=== PATIENT | female | born 1980 | race Caucasian/White ===

== ENCOUNTER → 2016-09-29 | Outpatient (CLI) | payer BC ==
[~2016-09-29] MED LIST: FISHOIL PO; METH0.2T39 PO; PRENTAB26 PO
[2016-09-29 18:45] LABS: URINE APPEARANCE CLEAR (CLEAR); URINE BILIRUBIN NEG (NEG); URINE COLOR YELLOW; URINE EPITHELIAL CELL AUTO 0-5 /lpf (0-5); URINE NITRITE NEG (NEG); UROBILINOGEN NEG (NEG)
[2016-09-29 18:47] LABS: MANUAL MICROSCOPIC REQUIRED? NO; REVIEW REQ? NO
== END | disposition home or self-care (01) ==
LOC: C.LABSPEC 17:51
PROVIDERS: ATTEND Obstetrics & Gynecology
DX: O09.512 Supervision of elderly primigravida, second trimester (principal); Z3A.00 Weeks of gestation of pregnancy not specified

== ENCOUNTER → 2016-09-29 | Outpatient (CLI) | payer BC ==
[2016-09-29 17:33] LABS: HEMATOCRIT 32.2 % (37-47)
[2016-09-29 18:07] LABS: GTGD 50 Grams
== END | disposition home or self-care (01) ==
LOC: C.LAB1850 16:53
PROVIDERS: ATTEND Obstetrics & Gynecology
DX: O09.512 Supervision of elderly primigravida, second trimester (principal); Z3A.00 Weeks of gestation of pregnancy not specified

== ENCOUNTER → 2016-11-20 | Outpatient (CLI) | payer BC | END | disposition home or self-care (01) | LOC: C.LABSPEC 16:23 | PROVIDERS: ATTEND Obstetrics & Gynecology | DX: O09.293 Supervision of pregnancy with other poor reproductive or obstetric history, third trimester (principal); Z3A.00 Weeks of gestation of pregnancy not specified ==

== ENCOUNTER 2016-12-16 03:08 | Inpatient (IN) | payer BC ==
[~2016-12-16] VITALS: Ht 172.7 cm; Wt 105.9 kg
[2016-12-17] MEDS ORDERED: LACTATED RINGER'S 1000ML 1,000 ML IV SCH ×2 (08:13→21:30)
[2016-12-17] MEDS ORDERED: LACTATED RINGER'S 1000ML 1,000 ML IV PRN (08:13)
[2016-12-17] MEDS ORDERED: LACTATED RINGER'S 1000ML 500 ML IV PRN ×3 (08:13→14:59)
[2016-12-17] MEDS ORDERED: NURSING VERBAL MED ORDER ONE (08:30)
[2016-12-17 08:44] LABS: HEMATOCRIT 33.4 % (37-47); MEAN CORPUSCULAR HEMOGLOBIN 29.6 pg (25-34); MEAN CORPUSCULAR HGB CONC 32.9 g/dl (32-36); PLATELET COUNT 233 K/uL (130-400); RED BLOOD COUNT 3.71 M/uL (4.2-5.4); WHITE BLOOD COUNT 8.86 K/uL (4.8-10.8)
[2016-12-17] MEDS ORDERED: PENICILLIN G POTASSIUM IV 6 MU in DEXTROSE 5% 250ML IV SCH (08:45)
[2016-12-17 08:59] VITALS: Ht 172.7 cm; Wt 105.9 kg
[2016-12-17] MEDS ORDERED: OXYTOCIN 30 UNITS/500ML NSS IV PRN ×2 (09:30→21:30)
[2016-12-17] MEDS: PENICILLIN G POTASSIUM IV 3 MU in DEXTROSE 5% 100ML IV PRN ×2 (12:46→17:10)
[2016-12-17] MEDS ORDERED: EpHEDrine SULFATE INJ 50 MG/ML AMP ONE (14:48)
[2016-12-17] MEDS ORDERED: BUPIVACAINE 0.25% 30 ML VIAL ONE (14:48)
[2016-12-17] MEDS ORDERED: FENTANYL 2MCG/ML ROPIV 1.25MG/ML 100ML BAG EPI ONE (14:48)
[2016-12-17] MEDS ORDERED: FENTANYL CITRATE INJ 50 MCG/1 ML 2 ML VIAL ONE (14:49)
[2016-12-17] MEDS ORDERED: NALOXONE HCL INJ 1 MG in SODIUM CHLORIDE 0.9% 1000ML 1,000 ML IV PRN (14:59)
[2016-12-17] MEDS ORDERED: FENTANYL 2MCG/ML ROPIV 1.25MG/ML 100ML BAG EPI PRN (15:00)
[2016-12-17] MEDS ORDERED: NALBUPHINE HCL INJ 10 MG/ML AMP IV PRN (15:00)
[2016-12-17] MEDS ORDERED: EpHEDrine SULFATE INJ 50 MG/ML AMP IV PRN (15:00)
[2016-12-17] MEDS ORDERED: NALOXONE HCL INJ 0.4 MG/1 ML VIAL/CARP IV PRN (15:00)
[2016-12-17] MEDS ORDERED: ONDANSETRON INJ 2 MG/ML 2 ML VIAL IV PRN (15:00)
[2016-12-17] MEDS ORDERED: DiphenhydrAMINE HCL 50 MG/ML VIAL IV PRN (15:00)
[2016-12-17] MEDS ORDERED: ACETAMINOPHEN 325 MG TAB PO PRN (21:30)
[2016-12-17] MEDS ORDERED: BENZOCAINE 20% AER SPR 82.5 GM CAN EXT PRN (21:30)
[2016-12-17] MEDS ORDERED: SUPERCREAM 0.870 % 15GM JAR EXT PRN (21:30)
[2016-12-17] MEDS ORDERED: HYDROCORTISONE ACETATE 25 MG SUPP PR PRN (21:30)
[2016-12-17] MEDS ORDERED: ACETAMINOPHEN/CODEINE 300/30MG TAB PO PRN ×2 (21:30)
[2016-12-17] MEDS ORDERED: LANOLIN OINT EXT PRN ×2 (21:30)
--- NOTE | 2016-12-17 21:37 | Anesthesia Procedure Note ---
Anesthesia Epidural Removal Nt Date & Time Dec 17, 2016 at 21:36 Vital Signs Pain Intensity: 2 Notes Mental Status: alert / awake / arousable, participated in evaluation Nausea / Vomiting: adequately controlled Pain: adequately controlled Airway Patency, RR, SpO2: stable & adequate BP & HR: stable & adequate Hydration State: stable & adequate Neuraxial Anesthesia: was administered Anesthetic Complications: no major complications apparent, pt satisfied with anesthetic care Epidural: removed without complications, with tip intact
--- NOTE | 2016-12-17 23:58 | DELIVERY SUMMARY ---
DATE OF OPERATION: 12/17/2016 VAGINAL DELIVERY NOTE PREOPERATIVE DIAGNOSES: 1. Apple intrauterine at postdates. 2. Induction of labor. 3. Group B strep positive. POSTOPERATIVE DIAGNOSES: Same. PROCEDURE: Spontaneous vaginal delivery and repair of second degree laceration. SURGEON: Jessica Harris MD DRAFTER MARINE: None. ESTIMATED BLOOD LOSS: 400 mL. COMPLICATIONS: None. DISPOSITION: Stable in labor and delivery. DESCRIPTION: Mae Leo is a 36-year-old. She was induced on 12/17/2016 for post dates. She had group B strep positive status, and she was managed with antibiotics during labor. She was induced using Pitocin. She reached complete dilation with an urge to push and I was called to the bedside. The head was already very close to delivery and she was coached to pushing efforts. She shortly thereafter delivered the head of the infant in the occiput anterior position, both shoulders were delivered without any difficulty and the infant was actually crying before its body was slowly delivered from the vagina. The was placed on the maternal abdomen. The cord was doubly clamped and cut by the father of the baby. The placenta delivered spontaneously and was intact with a 3-vessel cord. A second degree perineal laceration was repaired with Vicryl suture in the usual manner. At the completion of the procedure, the fundus was firm and the mother and infant were in stable condition. I attest to the content of the Intraoperative Record and any orders documented therein. Any exceptions are noted below. MTDD
[2016-12-18] VITALS (7 sets, daily range): BP systolic 111–129; BP diastolic 72–83; PULSE 67–81; TEMP 36.3–37.2; O2SAT 98
--- NOTE | 2016-12-18 06:58 | Progress Note ---
Subjective Dec 18, 2016. Subjective conversation w/ patient, physical exam, lab review Ambulation: ambulating normally Voiding: no voiding problems Passing Gas: Yes Diet Tolerance: Regular Diet Lochia: Moderate Feeding Type: Breast Feeding Pain: denies pain Comment: Patient was seen at the bedside. No acute event overnight. Review of Systems Constitutional: No fever Respiratory: No shortness of breath Cardiac: No chest pain Breast: No breast lump Abdomen: No nausea, No pain, No vomiting Female : No dysuria Denies headache Objective Vital Signs Date Time Temp Pulse Resp B/P Pulse Ox O2 Delivery O2 Flow Rate FiO2 12/18/16 04:00 36.9 69 16 111/73 Room Air 12/18/16 00:40 Room Air 12/18/16 00:40 36.6 79 18 114/80 Room Air Physical Exam General Appearance: WELL-APPEARING, WD/WN, NO APPARENT DISTRESS Respiratory/Chest: chest non-tender, lungs clear, normal breath sounds, no respiratory distress Cardiovascular: regular rate, rhythm Abdomen: normal bowel sounds, non tender, soft Fundus: Firm, Relation to Umbilicus (2cm below) Extremities: non-tender, no calf tenderness, + pedal edema (trace of ankle edema R>L) Laboratory Results Last 24 Hours Test 12/17/16 08:32 12/18/16 04:44 White Blood Count 8.86 K/uL Red Blood Count 3.71 M/uL Hemoglobin 11.0 g/dL Hematocrit 33.4 % Mean Corpuscular Volume 90.0 fL Mean Corpuscular Hemoglobin 29.6 pg Mean Corpuscular Hemoglobin Concent 32.9 g/dl RDW Standard Deviation 43.8 fL RDW Coefficient of Variation 13.5 % Platelet Count 233 K/uL Mean Platelet Volume 10.0 fL Medications Current Inpatient Medications Medications (Trade) Dose Ordered Sig/Vitor Route Start Time Stop Time Status Last Admin Dose Admin Lactated Ringer's 1,000 ml @ 125 mls/hr Q8H IV 12/17/16 08:13 12/19/16 08:12 12/17/16 15:08 125 MLS/HR Lactated Ringer's 500 ml @ 999 mls/hr Q31M PRN IV 12/17/16 08:13 01/16/17 08:12 Lactated Ringer's (Lr 1000ml) 1,000 ml @ 125 mls/hr Q8H IV 12/17/16 21:30 01/16/17 21:29 Oxytocin (Pitocin IV) 30 units UD PRN IV 12/17/16 21:30 01/16/17 21:29 Benzocaine (Dermoplast Aero Spr) 1 appln PRN PRN EXT 12/17/16 21:30 01/16/17 21:29 12/18/16 03:51 1 APPLN Cocaine HCl (Supercream 0.870% Cr) BID PRN EXT 12/17/16 21:30 12/31/16 21:29 Hydrocortisone Acetate (Anusol Hc Supp) 25 mg BID PRN AK 12/17/16 21:30 01/16/17 21:29 Lanolin (Lanolin Oint) PRN PRN EXT 12/17/16 21:30 01/16/17 21:29 Prenat Multivit/ Computer Bookkeeper/Iron/Folic Ac ( Vitamin Tab) 1 tab DAILY PO 12/18/16 08:00 01/17/17 07:59 Ibuprofen (Motrin Tab) 600 mg Q4H PRN PO 12/17/16 21:30 01/16/17 21:29 Acetaminophen (Tylenol Tab) 650 mg Q6H PRN PO 12/17/16 21:30 01/16/17 21:29 Acetaminophen/ Codeine Phosphate (Tylenol w/ Codeine #3 Tab) 1 tab Q4H PRN PO 12/17/16 21:30 01/16/17 21:29 Acetaminophen/ Codeine Phosphate (Tylenol w/ Codeine #3 Tab) 2 tab Q4H PRN PO 12/17/16 21:30 01/16/17 21:29 Docusate Sodium (coLACE CAP) 100 mg BID PO 12/18/16 08:00 01/17/17 07:59 Diphtheria/ Pertussis/Tetanus Vacc (Adacel Inj) 0.5 ml ONCE ONCE IM. 12/18/16 09:00 12/18/16 09:01 Assessment and Plan Post- Day#: 1 Continue Routine Care: A/P: This is a 36 y/o female, , s/p normal vaginal delivery. She is ambulating and clinically stable. Plan: - Vitals signs are reviewed and WNL (Tmax 36.9 ) - Last Hgb is 11.0 (this morning H&H pending) - Blood type A+, GBS positive, Rubella Immune - Routine care - Encourage ambulation, monitor and control pain with medication as needed , continue with regular diet as tolerated and monitor lochia - Stool softeners and sitz bath recommended - Encourage breast feeding and educate about breast feeding Resident Physician Supervision Note: I interviewed and examined the patient. Discussed with Dr. Prado and agree with findings and plan as documented in the note. Any exceptions or clarifications are listed here: [None] Documented By: Jessica Harris
[2016-12-18 07:22] LABS: HEMATOCRIT 32.9 % (37-47)
[2016-12-18] MEDS: DOCUSATE SODIUM 100 MG CAP PO SCH (08:33)
[2016-12-18] MEDS: PRENATAL VITAMIN TAB PO SCH (08:33)
[2016-12-18] MEDS ORDERED: DIPHTHERIA/TETANUS/PERTUSSIS 0.5 ML SYR/VIAL IM. ONE (09:00)
[2016-12-19] MEDS: IBUPROFEN 600 MG TAB PO PRN ×3 (03:18→15:00)
--- NOTE | 2016-12-19 06:24 | Discharge Instructions ---
Discharge Instructions Date of Service Dec 19, 2016. Admission Reason for Admission: Induction Discharge Discharge Diagnosis / Problem: S/P normal vaginal delivery Discharge Goals Goal(s): Routine recovery after delivery Medications Continue Dispensed Medications: supercream, dermaplast, tucks, lansinoh Activity Recommendations Activity Limitations: as noted below . Instructions / Follow-Up Instructions / Follow-Up ACTIVITY RECOMMENDATIONS: * Gradual return to full activity over the next 2-3 weeks. * No lifting - nothing heavier than baby over the next 2-3 weeks. * Do not engage in vigorous exercise, sexual activity or sports until cleared by your physician. * Do not drive or operate any motorized equipment until cleared by your physician. * You may shower/bathe daily. MEDICATIONS: For discomfort or pain, you may use Acetaminophen (Tylenol), Ibuprofen (Advil), or Naproxen (Aleve) following the package directions. For constipation you may use Colace following the package directions. BREAST CARE: If you are not breast feeding: * Wear a supportive bra 24 hours a day for one to two weeks. * Avoid stimulating your breasts and nipples as much as possible during the first few weeks after delivery. * When taking a shower, have the warm water hit your back, not breasts. * When your breasts feel full, apply ice packs. Usually three to four times a day helps ease the discomfort. * Take a mild pain medication (Tylenol / Motrin) when you are uncomfortable. If breast feeding: * Use breast milk to lubricate nipples. Lansinoh cream may be used for sore nipples. You do not need to remove cream prior to breast feeding. If using a different brand of cream, check the label for directions regarding removal of cream prior to nursing. * Wear a supportive bra. * If having problems with breasts or breast feeding, call a communication consultant or your health care provider. EPISIOTOMY CARE: After delivery, if you have an episiotomy (stitches), the following steps will ease discomfort and aid healing. * For the first 24 hours after delivery, place ice packs next to your episiotomy to help reduce swelling. * After the first 24 hour-period, sitz baths, either portable or in the tub, are suggested. A shower with a shower arm sprayed over the episiotomy may be comforting. * Rabia care should be done after each voiding and bowel movement. Squirt warm water from a plastic bottle over the perineum (region of the body between the anus and urinary opening) and pat dry. * Use Dermoplast to ease discomfort. Shake container. [place] directly over the episiotomy. Place a Tucks on a clean sanitary pad next to your episiotomy. SPECIAL CARE INSTRUCTIONS: When you are discharged from the hospital, it is important for you to follow the instructions listed below: * During the first week at home, you should be able to care for yourself and your baby. In addition, the usual light household activities are encouraged. * Limit your activities to the way you feel. Do not try to clean the house or move furniture. Be sensible. * If you actively engage in sports and have done so up until the time of your delivery, you may resume these activities as soon as you feel able. This may take up to one month or even longer. Use good judgment. * Continue to take your vitamins for at least six weeks after the of your baby. * Your diet need not be limited unless you were on a special diet before your delivery. Breast-feeding mothers need around 2500 calories per day and at least 64-80 ounces of fluid per day (8 to 10 glasses). * You should eat foods from the four major food groups. Crash diets or fad diets are to be avoided. Eating lean meats, fresh fruits and vegetables, low-fat dairy products, high fiber foods and a regular exercise program, will help you get back to your pre- weight without putting your health at risk. * Constipation is sometimes a problem after delivery. Take a mild laxative as needed. If breast feeding, Milk of Magnesia is acceptable to use. You may use a suppository or Fleets enema if no episiotomy. * A daily shower or tub bath is suggested. Be sure to thoroughly and gently dry the perineum. * A bloody vaginal discharge will usually continue until around four weeks post . A small amount of bleeding may continue for as long as six weeks. Vaginal discharge changes from the bright red bleeding after delivery to pink then brownish and finally yellowish-pink before becoming white and disappearing. * Bleeding may increase with activity. Your first period may come in 4-8 weeks. If you are breast feeding, your period may be delayed even longer. * [place] (sex) can begin whenever both you and your partner feel comfortable and do not have any form of genital infection. It is recommended that you wait at least six weeks for internal and external healing to occur. If you have questions, please talk to your health care practitioner. A condom should be used to prevent infection and . * Foreplay, gentle intercourse and lubrication is very important the first several times to prevent pain. A water-based lubricant such as K-Y jelly or Astroglide may be used. * If you have RH negative blood and your baby is RH positive, you will receive RHOGAM by injection prior to discharge. The nurse will give you a card to keep with you that has the date and place that you received RHOGAM after delivery. * During your care, you had a Rubella screen done to check for the presence of rubella antibodies in your blood. If your test was negative, you will receive a Rubella vaccine prior to discharge. This vaccine may cause a fever, soreness at the injection site and flu-like symptoms. If these symptoms persist, notify your health care practitioner. is not advised for one month after a Rubella vaccine. * Verbalizes understanding of car seat law as reviewed with patient nursing. * Car Seat hand-out given and reviewed with patient by nursing. * Shaken baby information reviewed with patient by nursing. Call you doctor if: * Heavy bleeding (saturating several pads an hour) or passing clots the size of your fist. * A fever >101 degrees F (38.3 degrees C) on two occasions four hours apart and /or chills. * Unusual pain in the pelvic or vaginal areas. * "Baby Blues" lasting longer than two weeks. If you have any questions or concerns, call your health care practitioner at . FOLLOW UP VISIT: * Please call the office at to schedule a 6 week examination. It is important you keep this appointment. It is important for you to make arrangements for either yearly or twice yearly check-ups thereafter. Current Hospital Diet Patient's current hospital diet: Regular OB Diet Discharge Diet Recommended Diet: Regular Diet Pending Studies Studies pending at discharge: no Medical Emergencies . Who to Call and When: Medical Emergencies: If at any time you feel your situation is an emergency, please call [phone] immediately. . Non-Emergent Contact Non-Emergency issues call your: Mechanical Equipment Test Engineer Call Non-Emergent contact if: you have a fever, temperature is above 101 . . "Provider Documentation" section prepared by Adriel Prado. . VTE Core Measure Inpt VTE Proph given/why not?: Treatment not indicated
--- NOTE | 2016-12-19 06:24 | Progress Note ---
Subjective Dec 19, 2016. Subjective conversation w/ patient, physical exam, lab review Ambulation: ambulating normally Voiding: no voiding problems Passing Gas: Yes Diet Tolerance: Regular Diet Lochia: Small Feeding Type: Breast Feeding Pain: controlled Objective Vital Signs Date Time Temp Pulse Resp B/P Pulse Ox O2 Delivery O2 Flow Rate FiO2 12/18/16 23:45 36.9 70 18 123/83 Room Air 12/18/16 23:45 Room Air 12/18/16 20:10 36.5 76 18 117/79 Room Air 12/18/16 15:43 98 Room Air 12/18/16 15:43 37.2 67 18 119/77 98 Room Air 12/18/16 12:45 36.6 77 16 111/72 98 Room Air 12/18/16 08:15 36.3 81 16 129/83 98 Room Air 12/18/16 08:15 98 Room Air Physical Exam General Appearance: WELL-APPEARING, WD/WN, NO APPARENT DISTRESS Respiratory/Chest: lungs clear, normal breath sounds Cardiovascular: regular rate, rhythm Abdomen: normal bowel sounds, non tender, soft Fundus: Firm, Non-Tender, Relation to Umbilicus (at u) Extremities: non-tender, normal inspection, no pedal edema Laboratory Results Last 24 Hours Test 12/18/16 06:48 Hemoglobin 10.9 g/dL Hematocrit 32.9 % Assessment and Plan Post- Day#: 2 Continue Routine Care: Doing well. Plan d/c later today. D/C instructions given.
[2016-12-19] MEDS: PRENATAL VITAMIN TAB PO SCH (07:43)
[2016-12-19] MEDS: DOCUSATE SODIUM 100 MG CAP PO SCH (07:44)
[2016-12-19 08:15] VITALS: BP 118/81; PULSE 71; TEMP 36.9; O2SAT 99
[2016-12-19 16:00] VITALS: BP 132/85; PULSE 60; TEMP 36.6
[2016-12-19 16:15] VITALS: BP 116/78; PULSE 71; TEMP 36.6; O2SAT 97
[2016-12-19 18:00] VITALS: BP_DIAS 78; PULSE 71; TEMP 36.6
== END 2016-12-19 19:03 | disposition home or self-care (01) | DRG 775 ==
LOC: C.LD 12-17 08:00 → C.OBG 12-18 00:14
PROVIDERS: ADMIT Obstetrics & Gynecology; ATTEND Obstetrics & Gynecology
PROC: 10907ZC Drainage of Amniotic Fluid, Therapeutic from Products of Conception, Via Natural or Artificial Opening (ICD-10-PCS; principal; 2016-12-17)
PROC: 10E0XZZ Delivery of Products of Conception, External Approach (ICD-10-PCS; principal; 2016-12-17)
PROC: 3E033VJ Introduction of Other Hormone into Peripheral Vein, Percutaneous Approach (ICD-10-PCS; principal; 2016-12-17)
PROC: 0KQM0ZZ Repair Perineum Muscle, Open Approach (ICD-10-PCS; principal; 2016-12-17)
DX: O48.0 Post-term pregnancy (principal); Z37.0 Single live birth; O99.824 Streptococcus B carrier state complicating childbirth; O70.1 Second degree perineal laceration during delivery; O26.893 Other specified pregnancy related conditions, third trimester; O99.214 Obesity complicating childbirth; E66.9 Obesity, unspecified; Z68.35 Body mass index [BMI] 35.0-35.9, adult; Z23 Encounter for immunization; Z3A.40 40 weeks gestation of pregnancy